=== PATIENT | male | born 1960 | race Caucasian/White ===

== ENCOUNTER 2024-08-24 17:41 | Emergency (ER) | payer MEDICARE, OTHER, SELFPAY ==
[2024-08-24] VITALS (10 sets, daily range): BP systolic 93–156; BP diastolic 77–93
--- NOTE | 2024-08-24 18:07 | RESPNOTE ---
pt received from home via EMS on own vent AC 14 500 +5 21% Ti 1.0s, settings matched on hospital vent. per daughter, last trach change was 08/15/24- same size 8.0 Shiley cuffed. daughter also states that family noticed some foul-smelling drainage
around trach site earlier this week, none noted on assessment. pt was suctioned x2 for scant amount of clear/ white mucus. vitals stable- 100% on RA via vent, HR 68, RR 14.
--- NOTE | 2024-08-24 19:11 | ED.GENMED ---
History of Present Illness
General
Chief Complaint: Blood Pressure Problem
Source: patient
Exam Limitations: none
Time Seen by Provider: 08/24/24 18:38
Nursing documentation reviewed up to this point in time: agreed with
History of Present Illness
History of Present Illness:
Patient is a 64-year-old male with past medical history of ALS trach/ventilator dependent with PEG tube, DVT, hypertension who presents to the emergency department via EMS alongside family and death surveys coder for evaluation of hypertension. Patient's
daughter and death surveys coder report that his blood pressure has been running more elevated than baseline over the past few days. It has been as high as 180s/100s. Patient is unable to provide meaningful history given comorbid conditions. His family
does state that he typically will let them know if he has any sort of discomfort if they ask however they believe he has been asymptomatic.
Patient has history of high blood pressure and multiple blood pressure medications which he takes daily. They have been noticing that his blood pressure has been running higher in the evening hours however seems improved by morning.
They do note that he had a busy weekend and feel some of this may be related to 'emotional distress'
Patient has not had any recent fever. He recently had his trach changed.
Past History
Past History
ED Past Medical History: Other (Kidney stone)
ED Past Surgical History: Negative Urological
Social History
Tobacco: Non-smoker
Alcohol: None
Drug: None
Personal:
Living: with family
Employment: Employed
Family History
Family History: Other (Noncontributory)
Review of Systems
Review of Systems
Allergies reviewed?: Yes
All Other Systems: ROS reviewed and negative except as documented in HPI and ROS
Phy Exam
Physical Exam
Physical Exam:
Vitals: Hypertensive on arrival. Afebrile
General: Patient is alert. Cachectic.
Skin: Warm and dry, no rashes or lesions
Head: Normocephalic, atraumatic
Eyes: Sclera nonicteric.
Throat: Tracheostomy/ventilator dependent.
Neck: Trachea midline. No JVD.
Cardiac: Regular rate and rhythm, no murmurs.
Pulm: Trach/ventilator dependent. Coarse lung sounds bilaterally. O2 saturation 99.
Abdomen: Abdomen soft and nontender. PEG tube in place
Extremities: No edema or deformities.
Neuro: Alert. Responds to painful stimuli.
Psychiatric: Normal affect.
Course
Orders/Labs/Results
Orders:
Orders
08/24/24 17:48
EKG [Electrocardiogram (*1)] Urgent
Reason for Study: Hypertension, Benign
EKG- Treatment ONCE
08/24/24 19:02
CR Chest Portable - 1 View Urgent
Comment:
Reason For Exam: HTN, trach
Reason Study Needs to be Portable: Unable to Transport
08/24/24 19:24
Basic Metabolic Panel Urgent
Complete Blood Count/With Diff Urgent
Manual Differential Urgent
Troponin I Urgent
08/24/24 20:37
0.9% Sodium Chloride 500 ml [Nss] 500 ml IV BOLUS
08/24/24 20:49
Troponin I Urgent
08/24/24 22:25
Electrocardiogram (*1) Urgent
Reason for Study: Chest Pain
EKG- Treatment ONCE
Abnormal Lab Results
08/24/24
19:24
RBC 3.72 L 10^6/uL
(4.70-6.10)
Hct 35.9 L %
(39.0-52.0)
MCV 96.5 H fL
(80.0-94.0)
MCH 35.8 H pg
(27.0-31.0)
Segmented Neutrophils 41 L %
(42-75)
Monocytes (Manual) 17 H %
(2-9)
Sodium 131 L mmol/L
(135-145)
BUN 30 H mg/dl
(9-20)
Creatinine < 0.2 L mg/dL
(0.7-1.3)
08/24/24 19:24
08/24/24 19:24
Vital Signs
Initial and Last Documented VS:
Initial Vital Signs
Pulse Resp BP Pulse Ox
72 14 156/89 100
08/24/24 17:47 08/24/24 17:47 08/24/24 17:47 08/24/24 17:47
Last Documented Vital Signs
Temp Pulse Resp BP Pulse Ox
98.2 F 105 14 118/84 97
08/24/24 17:50 08/25/24 02:30 08/25/24 02:30 08/25/24 02:00 08/25/24 02:30
MDM/Problems Addressed
Differential Diagnosis Includes:
Not limited to: Asymptomatic hypertension, acute dehydration, hypertensive urgency/emergency, medication side effect, infectious process, etc.
MDM/Problems Addressed:
64-year-old male with history as documented significant for ALS, trach/ventilator dependent with PEG tube who presents with family/caregiver with hypertension noted at home, worse over the past few days. Patient unable to contribute to history. No
history of fever. Patient had recent tracheostomy change. Patient mildly hypertensive on arrival otherwise with stable vital signs. He is alert. Abdomen soft and tender. He is saturating well on ventilator with coarse lung sounds bilaterally.
Ultimately�BP mildly elevated however no indication for IV antihypertensive therapy at this time. He did respond 'no 'when asked he had a headache. Additional history very limited�will plan to check labs chest x-ray, cardiac enzymes to ensure no
evidence of endorgan damage.
Update: Labs reviewed. CBC clinically significant abnormalities. Chemistry with mild hyponatremia and elevation in BUN likely secondary to dehydration. Will give small bolus of IV fluids. Troponin negative x 2 and EKG without acute ischemic
findings. Chest x-ray does show new consolidation in basilar left lower lobe either atelectasis versus pneumonia secondary to mucous plugging. Patient is afebrile with no evidence of leukocytosis. Overall lower suspicion for infectious process or
pneumonia however given risk factors we will plan to cover patient with antibiotics. Prescription sent for Augmentin to pharmacy.
Patient has remained afebrile and hemodynamically stable. His blood pressure has normalized without intervention. No evidence of endorgan damage today. No indication for admission to hospital. Feel stable for discharge home with continued
nursing care at home and strict return precautions. Will send prescription for antibiotic to cover for possible pneumonia. Case discussed with attending physician
Chronic conditions affecting care:
Hypertension, ALS trach/ventilator dependent
Acute Exacerbation and/or Progression of Chronic Illness:
Acutely hypertensive
*Radiology
Radiology exam reviewed: preliminary read by ED provider and radiology read reviewed
*Pulse Oximetry
SaO2: 99
Oxygen Mode of Delivery: Ventilator
Patient hypoxic: no
*EKG
Interpreted by ED Provider?: Yes
Comparison EKG: no changes
Heart Rate: 86
Rate: normal
Rhythm: sinus
[place]: normal axis
Interval: normal QT interval
QRS Pattern: normal QRS
Ischemia: no ischemia
*Sql Ssrs Developer Interpretation
Rate: normal
Interpretation: normal
Heart Rate: 78
Rhythm: sinus
*Critical Care Note
Total Time (30-74mins, 75-104mins- exclusive of procedures): Not Applicable
ED Attending Note
-
Portions of this chart may have been created with voice recognition software.� Occasional wrong word or��sound alike� substitutions may have occurred due to the inherent limitations of voice recognition software.
Discharge Plan
Departure
Patient Disposition: Home (Routine Discharge)
Date of Disposition: 08/24/24
Time of Disposition: 23:35
Patient with high blood pressure during this ER visit?: Yes
Discharge Problem:
Hypertension
Instructions: High Blood Pressure (DC), Pneumonia in adults - ED discharge instructions, BLOOD PRESSURE
Prescriptions:
New
amoxicillin-pot clavulanate 600-42.9 mg/5 mL suspension for reconstitution
7.3 ml feeding tube BID 5 Days Qty: 73 0RF
No Action
losartan 50 mg Tablet
50 mg feeding tube DAILY@1400
aspirin 81 mg Tablet,Delayed Release (Dr/Ec)
81 mg feeding tube DAILY
mupirocin 2 % Ointment
1 applic TOPICAL BID
mupirocin 2 % Ointment
1 applic TOPICAL TIDPRN PRN (Reason: apply around trachea)
scopolamine base 1 mg over 3 days Patch 3 Day
1 patch TRANSDERMAL Q3D
Patient Comments:
08/24/2024, pt. currently wearing a patch behind his right ear; applied patch yesterday (08/23/2024) @0900 per daughter.
acetaminophen [Tylenol Extra Strength] 500 mg/15 mL Liquid
1,000 mg feeding tube Q6HPRN PRN (Reason: mild pain)
metoprolol tartrate 25 mg Tablet
25 mg feeding tube Q6H
metoprolol tartrate 25 mg Tablet
12.5 mg feeding tube BIDPRN PRN (Reason: SBP>150 and/or DBP>90)
Calmoseptine ointment
1 applic topical .WITH BRIEF CHANGES
Cbd Liquid
112.5 mg feeding tube TID@0900,16,21
Liposomal Vitamin C 1,000 mg/15 ml liquid
15 ml feeding tube DAILY
Probiotic Liquid
1 dose feeding tube TID@0730,15,20
cholecalciferol (vitamin D3) liquid
20,000 unit feeding tube DAILY@1300
lorazepam 2 mg/ml solution
0.5 mg feeding tube Q8HPRN PRN (Reason: anxiety)
Patient Comments:
08/24/2024, filled on 01/25/2024 for 30 ml for 20-day supply per PDMP.
magnesium packet
1 packet feeding tube HS
turmeric liquid
3 drp feeding tube DAILY@1000
vitamin B complex packet
1 packet feeding tube DAILY@1100
Referrals:
Doris Lazaro NP [Family Provider, General] - Follow up in 2-3 days
Activity Restrictions/Additional Instructions:
RETURN TO THE EMERGENCY DEPARTMENT WITH ANY FEVERS, CHILLS, CHANGES IN MENTAL STATUS, EVIDENCE OF INFECTION AROUND TRACH, DECREASED OXYGEN SATURATIONS OR VITAL SIGN ABNORMALITIES, WORSENING CURRENT SYMPTOMS, OR ANY OTHER CONCERNS
- As discussed�the blood pressure was normal in the emergency department. He was given a small amount of IV fluids.
- Chest x-ray showed a possible new infiltrate in the right basilar region. Somewhat lower suspicion for acute infectious process given patient is afebrile, will cover patient with a course of antibiotics which has been sent to your pharmacy.
Please administer this twice a day for the next 5 days.
- Continue to keep patient well-hydrated and take medications as prescribed.
- Follow-up with patient's primary care provider for further evaluation/management to ensure that symptoms are improving
Monitor patient's symptoms very closely and return to the emergency department with any acute worsening/new symptoms or any other concerns
Interventions
Interventions:
*Risk Screen - Suicide Last Done: 08/24/24 18:59
*General Assessment Last Done: 08/24/24 18:59
*Neglect/Abuse Screening Last Done: 08/24/24 18:59
*ED- Fall Risk Assessment Last Done: 08/24/24 18:59
*ED COVID-19 Vaccine History Last Done: 08/24/24 18:59
*Nursing Disposition Last Done: 08/25/24 02:42
ED- Cardiac Assessment Last Done: 08/24/24 21:51
ED- Neurological Assessment Last Done: 08/24/24 21:51
ED- Pulmonary Assessment Last Done: 08/24/24 21:51
Discharge Date and Time
Discharge Date/Time: 08/25/24 02:43
Print Language: SLOVAK
[2024-08-24 19:59] LABS: Troponin I 0.014 ng/ml
[2024-08-24 20:06] LABS: Blood Urea Nitrogen 30 mg/dl (9-20); Calcium 9.5 mg/dl (8.4-10.2); Carbon Dioxide 25 mmol/L (22-30); Chloride 100 mmol/L (98-107); Glucose 98 mg/dl (70-99); Sodium 131 mmol/L (135-145); eGFR > 60.00
[2024-08-24 20:07] LABS: Absolute Neutrophils -Man Diff 2.2 10^3/uL (1.4-6.5); Hematocrit 35.9 % (39.0-52.0); Hemoglobin 13.3 g/dL (13.0-18.0); Mean Corp Hgb Conc. 37.0 g/dL (33.0-37.0); Mean Corpuscular Volume 96.5 fL (80.0-94.0); Platelet Count 219 10^3/uL (130-400); Platelets Checked Yes; Red Cell Dist. Width 12.4 % (11.5-14.5)
[2024-08-24 20:08] LABS: Normal RBC Morphology Yes; Total Cells Counted 100
[2024-08-24] MEDS: NSS 500 IV (20:51)
[2024-08-24 21:34] LABS: Troponin I 0.019 ng/ml
[2024-08-25] VITALS: BP 115/83
[2024-08-25 01:00] VITALS: BP 118/86
[2024-08-25 02:00] VITALS: BP 118/84
== END 2024-08-25 02:43 | disposition home or self-care (01) ==
LOC: EMR 17:41
PROVIDERS: Physician Assistant; EMERGENCY PHYSICIAN Student in an Organized Health Care Education/Training Program; FAMILY PHYSICIAN Nurse Practitioner Adult Health
DX: I10 Essential (primary) hypertension (principal); E87.1 Hypo-osmolality and hyponatremia; G12.21 Amyotrophic lateral sclerosis; Z87.442 Personal history of urinary calculi; Z93.0 Tracheostomy status; Z99.11 Dependence on respirator [ventilator] status
CPT/HCPCS: 99283; 96360; 71045; 80048; 84484; 85025; 93005; 94002

== ENCOUNTER 2024-10-31 19:09 | Emergency (ER) | payer MEDICARE, OTHER, SELFPAY ==
[2024-10-31 19:16] VITALS: BP 141/82
[2024-10-31 19:24] VITALS: BP 141/82
--- NOTE | 2024-10-31 19:33 | ED.GENMED ---
History of Present Illness
General
Chief Complaint: Airway Problem
Source: senior care assistant
Exam Limitations: non verbal-adult
Time Seen by Provider: 10/31/24 19:26
History of Present Illness
History of Present Illness:
64-year-old male with a history of ALS presents with progressive neck swelling. Initially started on the left side. This started about a month ago. Has progressed to both sides with more swelling. Patient denies pain. No fever. No airway
issues related to his ventilator or ability to oxygenate or ventilate. They feel it has become more progressive over the last 2 to 3 days.
Past History
Past History
ED Past Medical History: CAD and Other (Kidney stone. Cardiomyopathy. ALS)
ED Past Surgical History: Other (PEG tube/trach); Negative Urological
Social History
Tobacco: Non-smoker
Alcohol: None
Drug: None
Personal:
Living: with family
Employment: Employed
Family History
Family History: Other (Noncontributory)
Review of Systems
Review of Systems
All Other Systems: Not applicable
Constitutional: Denies fever
Respiratory: Denies trouble breathing
Cardiac: Denies chest pain
Phy Exam
Physical Exam
Physical Exam:
GENERAL: Chronically ill-appearing. Nonverbal. Ventilator dependent. Appears to respond to the caregiver although no obvious movement that I noted.
EYE: Conjunctival injection right greater than left with poor blinking response
NECK: Tracheostomy in place. No drainage around the trach. Edema to both submandibular areas left greater than right. No fluctuance does not appear tender
ENT: No drooling or stridor
CARDIAC: Regular rate and rhythm without any obvious murmurs.
LUNGS: Clear breath sounds,normal
ABDOMEN: Distended. Soft. PEG tube in place
NEUROLOGICAL: Severe ALS
SKIN: Warm and dry, no rash or lesion, no discoloration, skin intact.
MUSCULOSKELETAL: No edema,no deformity.Good color
Course
Orders/Labs/Results
Orders:
Orders
10/31/24 19:31
CT Chest With Iv Contrast Urgent
Comment:
Reason For Exam: Trach. Bilateral neck swelling progressing
CT Neck With Iv Contrast Urgent
Comment:
Reason For Exam: Trach. Bilateral neck swelling progressing
IV Insert/Care/Rem.- Treatment PRN
0.9% Sodium Chloride 250 ml [Nss] 250 ml IV BOLUS
10/31/24 19:38
Basic Metabolic Panel Urgent
Complete Blood Count/With Diff Urgent
Abnormal Lab Results
10/31/24
19:38
RBC 3.59 L 10^6/uL
(4.70-6.10)
Hgb 12.4 L g/dL
(13.0-18.0)
Hct 35.0 L %
(39.0-52.0)
MCV 97.5 H fL
(80.0-94.0)
MCH 34.5 H pg
(27.0-31.0)
Absolute Monos (auto) 0.9 H 10^3/uL
(0.1-0.6)
Monocytes % 19.0 H %
(1.7-9.3)
Sodium 132 L mmol/L
(135-145)
BUN 25 H mg/dl
(9-20)
Creatinine 0.2 L mg/dL
(0.7-1.3)
Glucose 126 H mg/dl
(70-99)
10/31/24 19:38
10/31/24 19:38
Vital Signs
Initial and Last Documented VS:
Initial Vital Signs
Pulse
54
10/31/24 19:12
Last Documented Vital Signs
Pulse Resp BP Pulse Ox
57 14 139/81 100
11/01/24 00:00 11/01/24 00:00 11/01/24 00:00 11/01/24 00:00
MDM/Problems Addressed
Differential Diagnosis Includes:
Patient with bilateral slow progression of neck swelling. Appears clinically stable. Airway stable. Etiology unclear at this time. Does not appear obviously infected. Could all be soft tissue lymphedema. Would consider a venous obstruction.
Workup in progress
*Radiology
Radiology exam reviewed: radiology read reviewed (No acute findings. Small pleural effusion severe atrophy)
*Pulse Oximetry
SaO2: 100
Oxygen Mode of Delivery: Ventilator
Patient hypoxic: no
*Critical Care Note
Total Time (30-74mins, 75-104mins- exclusive of procedures): 45
Data Reviewed
Review of Other/Old Records Reveals: Labs, Records and Testing
Update Note
Update Note:
Multiple lengthy discussion with the patient's and family. I find no acute explanation for this. He has had significant weight gain. He has lost muscle mass. This may be all secondary to these issues. I do not find an acute vascular issue
infectious issue. There is some mild erythema to both sides of his neck which could be explained just by irritation. We discussed an antibiotic for this. I did offer admission although I feel there is no strong reason for admission or indication.
They are comfortable taking home and home to follow-up he is going home
ED Attending Note
-
Portions of this chart may have been created with voice recognition software.� Occasional wrong word or��sound alike� substitutions may have occurred due to the inherent limitations of voice recognition software.
Discharge Plan
Departure
Patient Disposition: Home (Routine Discharge)
Date of Disposition: 11/01/24
Time of Disposition: 00:12
Patient with high blood pressure during this ER visit?: Yes
Discharge Problem:
Progressive bilateral neck swelling, ALS
Instructions: BLOOD PRESSURE
Prescriptions:
New
doxycycline monohydrate 25 mg/5 mL suspension for reconstitution
20 ml PO BID 10 Days Qty: 400 0RF
No Action
losartan 50 mg Tablet
50 mg feeding tube DAILY@1400
aspirin 81 mg Tablet,Delayed Release (Dr/Ec)
81 mg feeding tube DAILY
mupirocin 2 % Ointment
1 applic TOPICAL BID
mupirocin 2 % Ointment
1 applic TOPICAL TIDPRN PRN (Reason: apply around trachea)
scopolamine base 1 mg over 3 days Patch 3 Day
1 patch TRANSDERMAL Q3D
Patient Comments:
08/24/2024, pt. currently wearing a patch behind his right ear; applied patch yesterday (08/23/2024) @0900 per daughter.
acetaminophen [Tylenol Extra Strength] 500 mg/15 mL Liquid
1,000 mg feeding tube Q6HPRN PRN (Reason: mild pain)
metoprolol tartrate 25 mg Tablet
25 mg feeding tube Q6H
metoprolol tartrate 25 mg Tablet
12.5 mg feeding tube BIDPRN PRN (Reason: SBP>150 and/or DBP>90)
Calmoseptine ointment
1 applic topical .WITH BRIEF CHANGES
Cbd Liquid
112.5 mg feeding tube TID@0900,16,21
Liposomal Vitamin C 1,000 mg/15 ml liquid
15 ml feeding tube DAILY
Probiotic Liquid
1 dose feeding tube TID@0730,15,20
cholecalciferol (vitamin D3) liquid
20,000 unit feeding tube DAILY@1300
lorazepam 2 mg/ml solution
0.5 mg feeding tube Q8HPRN PRN (Reason: anxiety)
Patient Comments:
08/24/2024, filled on 01/25/2024 for 30 ml for 20-day supply per PDMP.
magnesium packet
1 packet feeding tube HS
turmeric liquid
3 drp feeding tube DAILY@1000
vitamin B complex packet
1 packet feeding tube DAILY@1100
amoxicillin-pot clavulanate 600-42.9 mg/5 mL suspension for reconstitution
7.3 ml feeding tube BID 5 Days Qty: 73 0RF
Referrals:
Jozef Arce MD [Active, Ophthalmology] - Next open appointment
Jenifer Garcia DO [Family Provider] - Follow up in 2-3 days
Activity Restrictions/Additional Instructions:
To consider follow-up with his ENT physician.
Above is the name of a very good field assessor
To consider trial of doxycycline
Return sooner with increased swelling redness fever airway issues or any other concerning issues
Interventions
Interventions:
*Risk Screen - Suicide Last Done: 10/31/24 19:28
*General Assessment Last Done: 10/31/24 19:28
*Neglect/Abuse Screening Last Done: 10/31/24 19:28
*ED- Fall Risk Assessment Last Done: 10/31/24 19:28
*ED COVID-19 Vaccine History Last Done: 10/31/24 19:28
ED- Pulmonary Assessment Last Done: 10/31/24 19:28
Discharge Date and Time
Print Language: BRAZILIAN
[2024-10-31 19:46] LABS: Hematocrit 35.0 % (39.0-52.0); Hemoglobin 12.4 g/dL (13.0-18.0); Mean Corp Hgb Conc. 35.4 g/dL (33.0-37.0); Mean Corpuscular Volume 97.5 fL (80.0-94.0); Nucleated Red Blood Cells % 0 % (-); Platelet Count 204 10^3/uL (130-400); Red Cell Dist. Width 12.9 % (11.5-14.5)
[2024-10-31 20:00] VITALS: BP 128/77
[2024-10-31 20:16] LABS: Blood Urea Nitrogen 25 mg/dl (9-20); Calcium 8.7 mg/dl (8.4-10.2); Carbon Dioxide 22 mmol/L (22-30); Chloride 104 mmol/L (98-107); Glucose 126 mg/dl (70-99); Potassium 4.5 mmol/L (3.5-5.1); Sodium 132 mmol/L (135-145); eGFR > 60.00
[2024-10-31] MEDS: NSS 250 IV (20:33)
[2024-10-31 21:00] VITALS: BP 124/83
[2024-10-31 22:00] VITALS: BP 137/83
[2024-10-31 23:00] VITALS: BP 137/84
[2024-11-01] VITALS (7 sets, daily range): BP systolic 121–139; BP diastolic 75–84
== END 2024-11-01 07:10 | disposition home or self-care (01) ==
LOC: EMR 19:09
PROVIDERS: EMERGENCY PHYSICIAN Emergency Medicine; FAMILY PHYSICIAN Family Medicine
DX: R22.1 Localized swelling, mass and lump, neck (principal); G12.21 Amyotrophic lateral sclerosis; I25.10 Atherosclerotic heart disease of native coronary artery without angina pectoris; I42.9 Cardiomyopathy, unspecified; Z87.442 Personal history of urinary calculi
CPT/HCPCS: 99284; 70491; 71260; 80048; 85025; 94002; Q9967